=== PATIENT | male | born 1990 | race African-American/Black ===

== ENCOUNTER 2021-10-26 09:37 | Emergency (ER) | payer BC, SELFPAY ==
--- NOTE | ~2021-10-26 | XR_ITS ---
EXAMINATION: XR foot LT 2V DATE: 10/26/2021 10:06 INDICATION: Lateral left foot pain post football injury TECHNIQUE: Dorsoplantar, two oblique and lateral views of the left foot were obtained. COMPARISON: None. FINDINGS: Nondisplaced transverse intra-articular likely avulsion fracture at the lateral base of the fifth met atarsal. No significant fracture gap or incongruity at the articular surface of the fifth tarsal meta tarsal joint. Alignment remains essentially anatomic. No other fractures identified. Joint spaces are normal. Small Achilles calcaneal spur. IMPRESSION: 1. Nondisplaced intra-articular fracture at the lateral base of the fifth metatarsal. Reviewed, dictated and finalized at location A. IMPRESSION: 1. Nondisplaced intra-articular fracture at the lateral base of the fifth metat arsal.
[2021-10-26 09:43] VITALS: BP 145/113; PULSE 90; RESP 18; TEMP 37.1; O2SAT 98
--- NOTE | 2021-10-26 11:21 | ED.LOWEXIN ---
HPI - Extremity Injury (Lower) General Chief Complaint: Extremity Injury, Lower Stated Complaint: left foot injury Time Seen by Provider: 10/26/21 10:56 Source: patient Mode of arrival: ambulatory Limitations: no limitations History of Present Illness HPI Narrative: This is a 31-year-old male that presents to the emergency department for left foot pain after an injury yesterday. Reports he was playing football and injured the left foot. Reports pain laterally in the foot, especially with ambulation. Denies any other injuries or trauma. Denies decreased range of motion or numbness. Related Data Allergies Allergy/AdvReac Type Severity Reaction Status Date / Time No Known Allergies Allergy Unverified 06/01/17 10:30 Review of Systems Review of Systems: CONSTITUTIONAL: Denies fever MUSCULOSKELETAL: Reports joint pain, and myalgia. All systems reviewed & are unremarkable except as noted in HPI and below PMFSH Past Medical History Medical History (Updated 10/26/21 @ 12:07 by Gwen Mahoney PA-C) No active medical problems Social History Social History (Updated 10/26/21 @ 11:22 by Gwen Mahoney PA-C) Smoking status: Never smoker Exam Narrative: GENERAL: Well-appearing, well-nourished, and in no acute distress. HEAD: Normocephalic, atraumatic. EYES: EOMI. EXTREMITIES: Normal range of motion. No edema or obvious deformity. Normal DP pulse. Normal sensation SKIN: Warm, dry, no rash. NEURO: No focal deficits. Alert and oriented x3. PSYCH: Normal mood and affect Course Vital Signs Vital signs: Vital Signs Temperature 98.8 F 10/26/21 09:43 Pulse Rate 90 10/26/21 09:43 Respiratory Rate 18 10/26/21 09:43 Blood Pressure 145/113 H 10/26/21 09:43 Pulse Oximetry 98 10/26/21 09:43 Oxygen Delivery Room Air 10/26/21 09:43 Temperature 98.8 F 10/26/21 09:43 Pulse Rate 90 10/26/21 09:43 Respiratory Rate 18 10/26/21 09:43 Blood Pressure 145/113 H 10/26/21 09:43 Pulse Oximetry 98 10/26/21 09:43 Oxygen Delivery Room Air 10/26/21 09:43 Procedures Orthopedic Splinting/Casting Injury #1: Splinting/Casting Date: 10/26/21 Splinting/Casting Time: 12:04 Side: left Lower Extremity Injury Location: foot Lower Extremity Immobilizer: post-op shoe Splint: prefabricated Pre-Formed: post op shoe Pre-Procedure Neuro Vascular Exam: normal Post-Procedure Neuro Vascular Exam: normal Other Orthopedic Equipment: crutches MDM - Extremity Injury (Lower) MDM Narrative Medical decision making narrative: Patient presents to the ER for left foot pain after an injury yesterday. Patient is neurovascularly intact. Left foot x-ray shows a nondisplaced intra-articular fracture at the base of the fifth metatarsal. Spoke with Dr. Tenorio about patient work-up. Patient placed in postop shoe and given crutches. He is to follow-up in clinic. He was given warnings to return to the ER Imaging Data Radiologist's impression: ITS Impressions Foot X-Ray 10/26/21 10:10 IMPRESSION: 1. Nondisplaced intra-articular fracture at the lateral base of the fifth metatarsal. Critical Care Time Critical Care Time Critical Care Time: No Discharge Plan Discharge Clinical Impression: Closed nondisplaced fracture of fifth left metatarsal bone Qualifiers: Encounter type: initial encounter Qualified Code(s): S92.355A - Nondisplaced fracture of fifth metatarsal bone, left foot, initial encounter for closed fracture Patient Disposition: Home, Self-Care Condition: Stable Instructions: Foot Fracture in Adults (ED) Additional Instructions: Return to the ER if you experience fever, redness and swelling of your leg, numbness or any other symptoms that are concerning to you Wear post op shoe and use crutches. No weight on the affected leg. Ice and elevate extremity. Pain medication as needed and directed. Follow up with or
[2021-10-26] MEDS: IBUPROFEN 600 MG TABLET PO (11:42)
[2021-10-26 12:53] VITALS: RESP 14
== END 2021-10-26 12:54 | disposition home or self-care (01) ==
PROVIDERS: Emergency Provider Emergency Medicine
DX: S92.355A Nondisplaced fracture of fifth metatarsal bone, left foot, initial encounter for closed fracture (principal); X58.XXXA Exposure to other specified factors, initial encounter; Y93.61 Activity, american tackle football
CPT/HCPCS: 73620; 99284; A9270